=== PATIENT | female | born 1955 | race Caucasian/White ===

== ENCOUNTER 2017-04-16 09:47 | Emergency (ER) | payer MEDICARE ==
--- NOTE | ~2017-04-16 | CR281 ---
[facility]. [facility] A Service of [facility] & [facility] RADIOLOGY TEXT RESULTS PATIENT: PAYTON YOON LOCATION: SED : 53 UNIT #: [id number] AGE: [address]: Nava Bowman APRN SEX: F ORDER DR: [id number] [address] [address] [id number] E MR#: [id number] Acc #: [id number] NAME: PAYTON YOON : 1955 SEX: F STUDY DATE/TIME: 04/16/2017 10:11 UNIT: SED ROOM: STUDY DESCRIPTION: CR Wrist Min 3 View Lt Attending Physician: Nava Bowman A.P.R.N. Ordering Physician: Nava Gutierrez A.P.R.N. Primary Care Physician: Carlton Khalil M.D. MEDICAL IMAGING REPORT This report is preliminary unless electronic signature is present. EXAM Left wrist 3 views HISTORY Left hand and wrist pain after fall this morning. Pain and bruising. FINDINGS Three views of the left wrist demonstrates no fracture or dislocation. Minimal arthritic changes seen at the first C[facility] joint. Soft tissues unremarkable. IMPRESSION No acute findings. Dictated by... Angelina Forrest M.D. THIS IS AN ELECTRONICALLY VERIFIED REPORT Angelina Forrest M.D. at 04/17/2017 7:59 AM Shey TD: 04/16/2017 13:34 JOB #: [id number] MEDICAL IMAGING REPORT Page 1 of 1
--- NOTE | ~2017-04-16 | CR141 ---
[facility]. [facility] A Service of [facility] & [facility] RADIOLOGY TEXT RESULTS PATIENT: PAYTON YOON LOCATION: SED : 53 UNIT #: [id number] AGE: [address]: Nava Bowman APRN SEX: F ORDER DR: [id number] [address] [address] [id number] E MR#: [id number] Acc #: [id number] NAME: PAYTON YOON : 1955 SEX: F STUDY DATE/TIME: 04/16/2017 10:11 UNIT: SED ROOM: STUDY DESCRIPTION: CR Hand Min 3 Views Lt Attending Physician: Nava Bowman A.P.R.N. Ordering Physician: Nava Gutierrez A.P.R.N. Primary Care Physician: Carlton Khalil M.D. MEDICAL IMAGING REPORT This report is preliminary unless electronic signature is present. ' EXAM Left and 3 views HISTORY Hand pain. Pain first, second and third metacarpals after fall this morning in kitchen. FINDINGS Three views left hand demonstrates no fracture or dislocation. No significant arthritic change. Bone mineralization appears normal. Soft tissues appear normal. IMPRESSION Negative left hand. Dictated by... Angelina Forrest M.D. THIS IS AN ELECTRONICALLY VERIFIED REPORT Angelina Forrest M.D. at 04/17/2017 7:59 AM KELECHI/cedrick TD: 04/16/2017 13:35 JOB #: [id number] MEDICAL IMAGING REPORT Page 1 of 1
[~2017-04-16 09:47] MED LIST: ADVAIR 2501 DISK W/D PO; ALBUTEROL17 GM INH; AUBAGIO14 MG PO; BACLOFEN; BACLOFEN10 MG; BENICAR HCT 20-1 TA1 PO; BENZONATATE PO; BETASERON; COLCHICINE; COLCHICINE PO; COMBIVENT INH14.7 GM; COMBIVENT14.7 GM; CRESTOR; CRESTOR10 MG PO; DULERA 200 MCG/13 GM IH; FISH OIL 1,0001 CAP; FLONASE16 GM; HALCION; IMODIUM2 MG PO; LEVAQUIN750 M1 PO; LEVOTHROID300 MCG PO; LONOX PO; LORTAB 10/500 T1 TAB PO; MIACALCIN4 ML; NASAL DECONGEST10 M1 PO; OPANA ER PO; OXYCONTIN; PHENERGAN PO; PLAVIX; PREDNISONE PO; PROTONIX PO; PROTONIX20 MG PO; PROZAC; ROBAXIN 750750 M1 PO; SKELAXIN; SKELAXIN PO; SPIRIVA18 MCG INH; SYNTHROID; TOPAMAX; ZITHROMAX PO
== END 2017-04-16 10:57 | disposition home or self-care (01) ==
LOC: SED 09:47
DX: S60.212A Contusion of left wrist, initial encounter (principal); F17.210 Nicotine dependence, cigarettes, uncomplicated; R21 Rash and other nonspecific skin eruption; R73.9 Hyperglycemia, unspecified; J44.9 Chronic obstructive pulmonary disease, unspecified; G35 Multiple sclerosis; Z79.899 Other long term (current) drug therapy; Z88.5 Allergy status to narcotic agent; Z88.8 Allergy status to other drugs, medicaments and biological substances; W18.30XA Fall on same level, unspecified, initial encounter; Y92.009 Unspecified place in unspecified non-institutional (private) residence as the place of occurrence of the external cause
CPT/HCPCS: 29280; 73110; 73130; 99283